=== PATIENT | female | born 1965 | race Caucasian/White ===

== ENCOUNTER 2017-05-21 20:53 | Emergency (ER) | payer OTHER ==
[2017-05-22 00:42] VITALS: BP 142/92
== END 2017-05-22 00:42 | disposition home or self-care (01) ==
LOC: ED 20:53
DX: S51.812A Laceration without foreign body of left forearm, initial encounter (principal); W26.8XXA Contact with other sharp object(s), not elsewhere classified, initial encounter; Y93.89 Activity, other specified; Y92.89 Other specified places as the place of occurrence of the external cause; Y99.8 Other external cause status